=== PATIENT | male | born 1975 | race African-American/Black ===

== ENCOUNTER 2020-09-24 23:20 | Emergency (ER) | payer SELFPAY ==
[2020-09-24] MEDS ORDERED: Ketorolac Tromethamine 30 MG/ML VIAL ONE (23:58)
== END 2020-09-25 00:07 | disposition home or self-care (01) ==
LOC: CSHERS 23:20
DX: S93.402A Sprain of unspecified ligament of left ankle, initial encounter (principal); F17.210 Nicotine dependence, cigarettes, uncomplicated; X50.1XXA Overexertion from prolonged static or awkward postures, initial encounter
CPT/HCPCS: 96372; 99282; J1885

== ENCOUNTER 2022-06-22 07:14 | Emergency (ER) | payer SELFPAY ==
[2022-06-22] MEDS ORDERED: diphenhydrAMINE 50 MG/ML VIAL ONE (07:34)
[2022-06-22] MEDS ORDERED: Dexamethasone 10 MG/ML VIAL ONE (07:34)
== END 2022-06-22 08:30 | disposition home or self-care (01) ==
LOC: CSHERS 07:14
DX: L50.9 Urticaria, unspecified (principal); I10 Essential (primary) hypertension; Z20.822 Contact with and (suspected) exposure to COVID-19
CPT/HCPCS: 87804; 96374; 96375; J1100; J1200; U0003; U0005

== ENCOUNTER 2022-08-11 11:06 | Emergency (ER) | payer SELFPAY ==
[2022-08-11 11:54] LABS: #Eosinphils 0.1 10x3/uL (0.0-0.5); #Monocytes 0.7 10x3/uL (0.0-1.1); #Neutrophils 3.8 10x3/uL (1.5-8.4); %Basophils 0.3 % (0.0-2.0); %Eosinophils 1.1 % (0.0-6.0); %Lymphocytes 29.7 % (18.0-47.0); %Monocytes 10.6 % (0.0-10.0); %Neutrophils 58.1 % (40.0-75.0); Hemoglobin 13.8 g/dL (13.5-17.5); Mean Corpuscular HGB CONC 34.6 g/dL (32.0-36.0); Mean Corpuscular Hemoglobin 27.1 pg (27.0-33.0); Mean Corpuscular Volume 78.2 fl (81.2-95.1); Mean Platelet Volume 10.7 fl (7.4-10.4); Platelet Count 224 10x3/uL (150-450); White Blood Cell (WBC) Count 6.5 10x3/uL (3.5-10.5)
[2022-08-11] MEDS ORDERED: Ketorolac Tromethamine 30 MG/ML VIAL ONE (11:57)
[2022-08-11] MEDS ORDERED: Ondansetron PF 4 MG/2 ML Vial ONE (11:57)
[2022-08-11 12:05] LABS: Acetaminophen Less than 10.0 mcg/mL (10.0-30.0); Alcohol Less than 10 mg/dL (Less than 10); Salicylate Less than 8.0 mg/dL (15.0-30.0)
[2022-08-11 12:06] LABS: ALT (SGPT) 21 U/L (8-55); AST (SGOT) 27 U/L (5-34); Albumin 3.9 g/dL (3.5-5.0); Alkaline Phosphatase 63 U/L (40-110); Anion Gap 12 mmol/L (10-20); BUN (Urea Nitrogen) 17 mg/dL (8.9-20.6); Bilirubin, Total 0.5 mg/dL (0.2-1.2); Calc. Creatinine Clearance 0 mL/min (70-130); Carbon Dioxide 25 mmol/L (22-29); Chloride 102 mmol/L (98-107); Estimated GFR 71; Globulin 3.2 g/dL (2.4-3.5); Glucose 87 mg/dL (70-105); Lipase 27 U/L (8-78); Protein, Total 7.1 g/dL (6.0-8.3); Sodium 135 mmol/L (136-145)
== END 2022-08-11 12:40 | disposition home or self-care (01) ==
LOC: CSHERS 11:06
DX: K29.70 Gastritis, unspecified, without bleeding (principal); I10 Essential (primary) hypertension
CPT/HCPCS: 74177; 80053; 80307; 83690; 85025; 96361; 96374; 96375; J1885; J2405

== ENCOUNTER 2023-05-15 05:42 | Inpatient (IN) | payer BC, SELFPAY ==
[2023-05-15] MEDS ORDERED: hydrALAZINE 20 MG/ML VIAL ONE (06:25)
[2023-05-15 06:26] LABS: #Eosinphils 0.1 10x3/uL (0.0-0.5); #Monocytes 0.6 10x3/uL (0.0-1.1); #Neutrophils 5.7 10x3/uL (1.5-8.4); %Basophils 0.5 % (0.0-2.0); %Eosinophils 0.9 % (0.0-6.0); %Lymphocytes 16.5 % (18.0-47.0); %Monocytes 8.2 % (0.0-10.0); %Neutrophils 73.8 % (40.0-75.0); Hematocrit 39.3 % (38.8-50.0); Hemoglobin 13.5 g/dL (13.5-17.5); Mean Corpuscular HGB CONC 34.4 g/dL (32.0-36.0); Mean Corpuscular Hemoglobin 27.1 pg (27.0-33.0); Mean Corpuscular Volume 78.9 fl (81.2-95.1); Mean Platelet Volume 12.3 fl (7.4-10.4); Platelet Count 226 10x3/uL (150-450); RBC Distribution Width 14.6 % (11.5-14.5); Red Blood Cell (RBC) Count 4.98 10x6/uL (4.32-5.72); White Blood Cell (WBC) Count 7.7 10x3/uL (3.5-10.5)
[2023-05-15 06:42] LABS: Troponin I 0.055 ng/mL (< 0.028)
[2023-05-15 06:43] LABS: ALT (SGPT) 14 U/L (8-55); AST (SGOT) 21 U/L (5-34); Albumin 3.9 g/dL (3.5-5.0); Alkaline Phosphatase 62 U/L (40-110); Anion Gap 17 mmol/L (10-20); BUN (Urea Nitrogen) 31 mg/dL (8.9-20.6); Bilirubin, Total 0.5 mg/dL (0.2-1.2); Calc. Creatinine Clearance 0 mL/min (70-130); Calcium 8.8 mg/dL (7.8-10.44); Carbon Dioxide 23 mmol/L (22-29); Chloride 103 mmol/L (98-107); Estimated GFR 64; Glucose 112 mg/dL (70-105); Potassium 3.5 mmol/L (3.5-5.1); Protein, Total 6.9 g/dL (6.0-8.3); Sodium 139 mmol/L (136-145)
[2023-05-15 06:44] LABS: Acetaminophen Less than 10 mcg/mL (10.0-30.0); Alcohol Less than 10.0 mg/dL (Less than 10); Salicylate Less than 8.0 mg/dL (15.0-30.0)
[2023-05-15] MEDS ORDERED: niCARdipine 25 MG/10 ML SDV ONE (06:48)
[2023-05-15 06:59] LABS: SARS-CoV-2 NAA Rapid Test Not Detected (NotDetected)
[2023-05-15] MEDS ORDERED: Acetaminophen 325 MG TAB PO PRN (07:52)
[2023-05-15] MEDS ORDERED: Ondansetron PF 4 MG/2 ML Vial IVP PRN (07:52)
[2023-05-15 09:54] VITALS: BMI 23.6
[2023-05-15] MEDS ORDERED: Magnevist 469MG/ML 20 ML VIAL ONE (10:29)
[2023-05-15] MEDS: Famotidine 20 MG TAB PO SCH ×2 (10:49→20:06)
[2023-05-15 10:58] LABS: Troponin I 0.049 ng/mL (< 0.028)
[2023-05-15] MEDS: niCARdipine 25 MG in Sodium Chloride 0.9% 250 ML 250 ML IVPB PRN ×2 (13:53→21:07)
[2023-05-15 14:11] LABS: Troponin I 0.034 ng/mL (< 0.028)
[2023-05-16] MEDS: niCARdipine 25 MG in Sodium Chloride 0.9% 250 ML 250 ML IVPB PRN ×3 (01:13→06:10)
[2023-05-16 03:56] LABS: Anion Gap 13 mmol/L (10-20); BUN (Urea Nitrogen) 22 mg/dL (8.9-20.6); Calc. Creatinine Clearance 77 mL/min (70-130); Calcium 9.3 mg/dL (7.8-10.44); Carbon Dioxide 27 mmol/L (22-29); Chloride 98 mmol/L (98-107); Estimated GFR 67; Glucose 115 mg/dL (70-105); Potassium 3.1 mmol/L (3.5-5.1); Sodium 135 mmol/L (136-145)
[2023-05-16 04:18] LABS: #Monocytes 0.7 10x3/uL (0.0-1.1); #Neutrophils 7.1 10x3/uL (1.5-8.4); %Basophils 0.2 % (0.0-2.0); %Eosinophils 0.3 % (0.0-6.0); %Lymphocytes 13.9 % (18.0-47.0); %Monocytes 7.4 % (0.0-10.0); Hemoglobin 14.5 g/dL (13.5-17.5); Mean Corpuscular HGB CONC 35.4 g/dL (32.0-36.0); Mean Corpuscular Hemoglobin 27.8 pg (27.0-33.0); Mean Corpuscular Volume 78.5 fl (81.2-95.1); Platelet Count 203 10x3/uL (150-450); RBC Distribution Width 14.2 % (11.5-14.5); Red Blood Cell (RBC) Count 5.22 10x6/uL (4.32-5.72); White Blood Cell (WBC) Count 9.1 10x3/uL (3.5-10.5)
[2023-05-16] MEDS ORDERED: cloNIDine 0.1 MG TAB PO SCH (04:30)
[2023-05-16] MEDS: Famotidine 20 MG TAB PO SCH ×2 (08:03→22:01)
[2023-05-16] MEDS: NIFEdipine XL 30 MG ER.TAB PO SCH (08:04)
[2023-05-16] MEDS ORDERED: Lisinopril 20 MG TAB PO SCH (09:00)
[2023-05-16] MEDS ORDERED: Potassium Chloride 20 MEQ TAB PO SCH (10:00)
[2023-05-16] MEDS ORDERED: Potassium Bicarbonate/Cit Ac 20 MEQ TAB PO SCH (13:00)
[2023-05-16 17:22] VITALS: TEMP 98.8
[2023-05-16] MEDS: Lisinopril 20 MG TAB PO SCH (22:01)
[2023-05-17] MEDS ORDERED: NIFEdipine XL 30 MG ER.TAB PO SCH ×2 (01:45→12:30)
[2023-05-17] MEDS: Lisinopril 20 MG TAB PO SCH (07:35)
[2023-05-17] MEDS: NIFEdipine XL 30 MG ER.TAB PO SCH (07:35)
[2023-05-17] MEDS: Famotidine 20 MG TAB PO SCH (09:01)
[2023-05-17] MEDS ORDERED: Amlodipine 10 MG TAB PO SCH (12:30)
[2023-05-17 12:31] VITALS: BP 185/121
[2023-05-17] MEDS ORDERED: Nicotine 21 MG PATCH TOP SCH (14:00)
[2023-05-18] MEDS ORDERED: NIFEdipine XL 60 MG ER.TAB PO SCH (09:00)
[2023-05-18] MEDS ORDERED: Amlodipine 10 MG TAB PO SCH (09:00)
== END 2023-05-17 14:30 | disposition home or self-care (01) | DRG 281 ==
LOC: CSHERS 05:42 → SUATTDRO 05:42 → CSHIMCU 07:13 → CSHTELE 05-16 15:47
PROVIDERS: ADMIT Internal Medicine; ATTEND Internal Medicine
DX: I16.1 Hypertensive emergency (principal); I21.A1 Myocardial infarction type 2; I67.89 Other cerebrovascular disease; E87.6 Hypokalemia; F19.10 Other psychoactive substance abuse, uncomplicated; F17.210 Nicotine dependence, cigarettes, uncomplicated; Z11.52 Encounter for screening for COVID-19; Z91.148 Patient's other noncompliance with medication regimen for other reason
CPT/HCPCS: 36415; 70450; 70553; 71045; 80048; 80053; 80307; 83880; 84484; 85025; 93005; 94760; 96365; 96366; 96375; A9579; J0360; J2405; J7050